=== PATIENT | female | born 1940 ===

== ENCOUNTER → 2017-06-07 | Outpatient (CLI) | payer MEDICARE ==
--- NOTE | 2017-06-07 17:15 | PCVCIMAG ---
APPROVED REPORT Study performed: 06/07/2017 15:58:44 EXAM: Comprehensive 2D, Doppler, and color-flow Echocardiogram Patient Location: Echo lab Status: routine BSA: 1.72 HR: 60 bpmBP: 120/81 mmHg Rhythm: NSR Other Information Study Quality: Good Risk Factors: Cardiac Risk Factors: HTN, Hyperlipidemia Indications Abnormal ECG Pre-Op Hypertension/HDD 2D Dimensions IVSd: 6.99 (7-11mm)LVOT Diam: 20.85 (18-24mm) LVDd: 51.78 mm PWd: 5.76 (7-11mm)Ascending Ao: 32.48 (22-36mm) LVDs: 30.12 (25-40mm) Left Atrium: 30.31 (27-40mm) Aortic Root: 29.32 mm LV Single Plane 4CH: 61.62 % LV Single Plane 2CH: 70.76 %Zimmerman's LVEF: 66.19 % Biplane EF: 67.5 % Volumes Left Atrial Volume (Systole) Single Plane 4CH: 56.67 mLSingle Plane 2CH: 81.25 mL Biplane LA Volume: 69.00 mLLA ESV Index: 40.00 mL/m2 Aortic Valve AoV Peak Stanislav.: 1.40 m/s AO Peak Gr.: 7.87 mmHgLVOT Max P.37 mmHg LVOT Max V: 0.75 m/s TYE Vmax: 1.82 cm2 Mitral Valve E/A Ratio: 1.3 MV Decel. Time: 159.78 ms MV E Max Stanislav.: 1.31 m/s MV A Stanislav.: 1.03 m/s IVRT: 103.81 ms TDI E/Lateral E': 18.71E/Medial E': 26.20 Medial E' Stanislav.: 0.05 m/s Lateral E' Stanislav.: 0.07 m/s Pulmonary Valve PV Peak Stanislav.: 0.87 m/sPV Peak Gr.: 3.02 mmHg Pulmonary Vein P Vein S: 0.69 m/sP Vein A: 0.33 m/s P Vein D: 0.68 m/sP Vein A Dur.: 96.9 msec P Vein S/D Ratio: 1.01 Tricuspid Valve TR Peak Stanislav.: 2.90 m/s TR Peak Gr.: 33.56 mmHg TV Vmax: 0.57 m/sPA Pressure: 41.00 mmHg Left Ventricle The left ventricle is normal size. There is normal LV segmental wall motion. There is normal left ventricular wall thickness. Left ventricular systolic function is normal. The left ventricular ejection fraction is within the normal range. LVEF is 65-70%. Grade II - pseudonormal filling dynamics. Right Ventricle The right ventricle is normal size. The right ventricular systolic function is normal. Atria The left atrium size is mildly dilated The right atrium size is mildly dilated Aortic Valve The aortic valve is normal in structure. No aortic regurgitation is present. There is no aortic valvular stenosis. Mitral Valve The mitral valve is normal in structure. Mild mitral regurgitation. No evidence of mitral valve stenosis. Tricuspid Valve The tricuspid valve is normal in structure. Moderate tricuspid regurgitation with a PA pressure of 41mmHg. Pulmonic Valve The pulmonary valve is normal in structure. There is no pulmonic valvular regurgitation. Great Vessels The aortic root is normal in size. The ascending aorta is normal in size. IVC is normal in size and collapses with >50% inspiration Pericardium Trace or small pericardial effusion. There is no pleural effusion. <Conclusion> Left ventricular systolic function is normal. LVEF is 65-70%. Normal segmental wall motion There is normal LV segmental wall motion. Both atria are mildly dilated The aortic valve is normal in structure. No aortic valvular stenosis or insufficiency. The mitral valve is normal in structure. Mild mitral regurgitation. Pulmonary artery pressure of 40mmHg Trace pericardial effusion.
== END | disposition home or self-care (01) ==
LOC: PCVCCLINIC 15:24
PROVIDERS: ATTEND Internal Medicine Cardiovascular Disease
DX: Z01.810 Encounter for preprocedural cardiovascular examination (principal); I08.1 Rheumatic disorders of both mitral and tricuspid valves; R94.31 Abnormal electrocardiogram [ECG] [EKG]; E78.5 Hyperlipidemia, unspecified; I44.4 Left anterior fascicular block; I10 Essential (primary) hypertension; G62.9 Polyneuropathy, unspecified; I31.3 Pericardial effusion (noninflammatory); K21.9 Gastro-esophageal reflux disease without esophagitis; E03.9 Hypothyroidism, unspecified; F32.9 Major depressive disorder, single episode, unspecified; Z90.49 Acquired absence of other specified parts of digestive tract; Z96.651 Presence of right artificial knee joint; Z79.82 Long term (current) use of aspirin; Z79.899 Other long term (current) drug therapy
CPT/HCPCS: 80061; 93005; 93306; G0463